=== PATIENT | female | born 1950 | race Caucasian/White ===

== ENCOUNTER 2016-09-28 12:57 | Emergency (ER) | payer OTHER ==
[2016-09-28 13:58] LABS: SPECIFIC GRAVITY 1.025 (1.001-1.030); URINE BILIRUBIN NEGATIVE (NEGATIVE); URINE BLOOD 2+ (NEGATIVE); URINE GLUCOSE (UA) NEGATIVE (NEGATIVE); URINE LEUKOCYTE ESTERASE NEGATIVE (NEGATIVE); URINE NITRITE NEGATIVE (NEGATIVE); URINE PROTEIN TRACE (NEGATIVE); URINE UROBILINOGEN NORMAL (0-1 mg/dl)
[2016-09-28 14:01] LABS: URINE APPEARANCE CLEAR; URINE COLOR YELLOW
[2016-09-28 14:03] LABS: ABSOLUTE NEUTROPHIL COUNT 4.5 K/mm3 (1.8-7.7); BASO % 0.4 % (0.2-1.0); EOS # 0.1 (0.0-0.5); EOS % 0.9 % (0.9-2.9); HEMATOCRIT 44.9 % (37.0-47.0); HEMOGLOBIN 14.8 gm/l (12.0-16.0); IMM NEUT% 0.3 % (0-1); LYMPH # 1.8 (1.0-4.8); LYMPH % 27.2 % (15-45); MEAN CELL VOLUME 89.4 fl (81.0-99.0); MEAN CORPUSCULAR HEMOGLOBIN 29.5 pg (27.0-31.0); MEAN PLATELET VOLUME 11.2 fl (7.4-10.4); MONO # 0.4 (0.0-0.8); MONO % 5.2 % (4-12); PLATELET COUNT 239 K/mm3 (130-400); RED CELL DISTRIBUTION WIDTH 14.2 % (11.5-14.5)
[2016-09-28 14:18] LABS: URINE WBC 0-1 /hpf
[2016-09-28 14:19] LABS: CALCIUM 9.6 mg/dL (8.6-10.3)
[2016-09-28 14:20] LABS: URINE BACTERIA 1+
--- NOTE | 2016-09-28 14:50 | RAD ---
CHEST - 2 VIEWS COMPARISON: None. HISTORY: Weight loss. FINDINGS: Views: Frontal and lateral chest Lungs: 2.7 cm mass in the anterior inferior right upper lobe. The lungs are hyperinflated. Heart and vessels: Normal Trachea and bronchi: Normal Mediastinum and fadia: Normal Costophrenic sulci: Normal Chest wall and bones: Normal. Upper abdomen: Normal. IMPRESSION: 1. 2.7 cm mass in the right upper lobe. Chest CT is recommended. 2. Emphysema.
--- NOTE | 2016-09-28 16:29 | CT ---
ABD/PELVIS W/O CON COMPARISON: Chest 2 views, 09/28/2016. HISTORY: Mass in the right upper lobe. Prior history of colon cancer. Technique: Using a [employer] Aquilion [address] scanner, images were obtained from the diaphragm to the floor the pelvis. No intravenous contrast. An automated dose reduction technique was used to minimize patient radiation dose. Dose: CTDIvol (mGy): 5.80 DLP(mGycm): 380.30 FINDINGS: Liver: Normal Gallbladder: Cholecystectomy. Bile ducts: Normal. Pancreas: Normal Spleen: Normal Adrenal glands: Normal Kidneys: Normal Ureters: Normal Urinary bladder: Normal Uterus and adnexa: Hysterectomy. Blood vessels: Moderate atherosclerosis aorta and its branches in the abdomen and pelvis. Lymph nodes: Normal Stomach: Normal Duodenum: Normal. Small intestine: Normal Appendix: Removed. Colon: Left-sided colostomy. No obstruction. Abdominal wall and supporting musculature: Left-sided colostomy. Bones: Degenerative changes in spine. IMPRESSION: 1. No evidence of metastasis to the abdomen and pelvis. 2. Incidental findings include cholecystectomy, hysterectomy, left-sided colostomy without obstruction, and degenerative changes in the spine. The report was sent to the emergency department electronic medical record system 09/28/2016 at 16:30.
--- NOTE | 2016-09-28 16:30 | CT ---
CHEST W/O CON COMPARISON: Chest 2 views, 09/28/2016 HISTORY: 2.7 cm mass in the right upper lobe. Technique: The thorax was imaged with a [employer] Aquilion [address] scanner. No intravenous contrast. An automated dose reduction technique was used to minimize patient radiation dose. Dose information: CTDIvol (mGy): 5.80 DLP(mGycm): 380.30 FINDINGS: Lungs: Emphysema. In the anterior lateral inferior right upper lobe, spiculated mass with some central necrosis, 3.2 cm AP by 2.3 cm transverse by 2.6 cm craniocaudal Heart and vessels: Atherosclerosis of the aorta and the coronary arteries. Trachea and bronchi: Normal. Mediastinum and fadia: 16 x 10 mm lymph node, right hilum. Pleura and pericardium: Normal. Chest wall: Normal. Bones: No acute finding. Degenerative changes in the spine. IMPRESSION: 1. 3.2 x 2.3 x 2.6 cm mass in the right upper lobe with a large right hilar lymph node, evidence of primary lung cancer. 2. Emphysema. The report was sent to the emergency department electronic medical record system 09/28/2016 at 16:31
--- NOTE | 2016-09-28 16:31 | CT ---
HEAD W/O CON COMPARISON: None HISTORY: Altered mental status. Lung mass. Check for metastasis. TECHNIQUE: Using a [employer] Aquilion [address] scanner, images were obtained through the head. An automated dose reduction technique was used to minimize patient radiation dose. DOSE INFORMATION: CTDIvol (mGy): 51.70 DLP(mGycm): 835.60 FINDINGS: Mass: None Intracranial Hemorrhage: None Acute Infarction: None Cerebral hemispheres: Low attenuation and edema in the posterior left hemisphere. Basal ganglia: Normal Thalami: Normal Brainstem: Normal Cerebellum: Normal Ventricles: Normal Basilar cisterns: Normal Corpus callosum: Normal Pituitary fossa: Normal Middle ears and mastoid air cells: Normal Orbits and sinuses: Normal Skull and scalp: Normal Dural sinuses and vessels: Normal IMPRESSION: 1. Edema in the posterior left cerebral hemisphere, evidence of a metastatic lesion with vasogenic edema. A follow-up MRI with contrast is recommended. The report was sent to the emergency department electronic medical record system, 09/28/2016 at 16:32
[2016-09-28] MEDS ORDERED: SODIUM CHLORIDE 0.9% 1,000 ML ONE (17:23)
== END 2016-09-28 18:28 | disposition short-term general hospital (02) ==
LOC: ED 12:57
DX: G93.6 Cerebral edema (principal); C34.90 Malignant neoplasm of unspecified part of unspecified bronchus or lung; R11.0 Nausea; R53.1 Weakness; R63.0 Anorexia; F17.210 Nicotine dependence, cigarettes, uncomplicated; Z93.3 Colostomy status
CPT/HCPCS: 83690; 82150; 85025; 87086; 80053; 84443; 81001; 71020; 74176; 70450; 71250; 99285 ×2; 96360; 51701; J7030

== ENCOUNTER 2016-10-07 22:23 | Emergency (ER) | payer OTHER ==
[2016-10-08 00:38] LABS: ABSOLUTE NEUTROPHIL COUNT 6.7 K/mm3 (1.8-7.7); BASO % 0.3 % (0.2-1.0); EOS # 0.1 (0.0-0.5); HEMATOCRIT 39.5 % (37.0-47.0); HEMOGLOBIN 13.3 gm/l (12.0-16.0); IMM NEUT% 0.3 % (0-1); LYMPH # 1.9 (1.0-4.8); LYMPH % 20.5 % (15-45); MEAN CORPUSCULAR HGB CONC 33.7 g/dl (33.0-37.0); MEAN PLATELET VOLUME 11.6 fl (7.4-10.4); MONO # 0.4 (0.0-0.8); NEUT % 73.9 % (43-75); PLATELET COUNT 202 K/mm3 (130-400); RED CELL DISTRIBUTION WIDTH 14.6 % (11.5-14.5)
[2016-10-08 01:14] LABS: ALBUMIN 3.7 gm/dL (3.5-5.7); CALCIUM 8.9 mg/dL (8.6-10.3)
[2016-10-08 01:19] LABS: SPECIFIC GRAVITY 1.025 (1.001-1.030); URINE BILIRUBIN NEGATIVE (NEGATIVE); URINE BLOOD NEGATIVE (NEGATIVE); URINE GLUCOSE (UA) NEGATIVE (NEGATIVE); URINE LEUKOCYTE ESTERASE 2+ (NEGATIVE); URINE NITRITE NEGATIVE (NEGATIVE); URINE PROTEIN TRACE (NEGATIVE); URINE UROBILINOGEN NORMAL (0-1 mg/dl)
[2016-10-08 01:25] LABS: URINE APPEARANCE CLEAR; URINE COLOR YELLOW
[2016-10-08 01:27] LABS: URINE BACTERIA 1+; URINE EPITHELIAL CELLS FEW /hpf; URINE MUCUS 1+; URINE RBC 0-1 /hpf
[2016-10-08] MEDS ORDERED: SULFAMETHOXAZOLE 800 MG/TRIMETHOPRIM 160 MG TABLET ONE (03:50)
== END 2016-10-08 04:59 | disposition home or self-care (01) ==
LOC: ED 22:23
DX: N39.0 Urinary tract infection, site not specified (principal); R53.1 Weakness; R06.02 Shortness of breath
CPT/HCPCS: 85025; 87086; 80053; 84484 ×2; 81001; 99283 ×2; A9270